=== PATIENT | male | born 1990 | race Caucasian/White ===

== ENCOUNTER 2020-07-12 16:28 | Outpatient (NON) | payer BC, SELFPAY | END 2020-07-12 16:29 | LOC: ANHLAB 16:30 | PROVIDERS: PCP Family Medicine; Visit Provider Nurse Practitioner | DX: L02.91 Cutaneous abscess, unspecified (principal) | CPT/HCPCS: 87070; 87075; 87076; 87205 ==

== ENCOUNTER → 2020-09-21 14:55 | Outpatient (REF) | payer BC, SELFPAY | LOC: ANHLAB 14:55 | PROVIDERS: PCP Family Medicine; Visit Provider Nurse Practitioner | DX: R22.9 Localized swelling, mass and lump, unspecified (principal) | CPT/HCPCS: 88304; 88305 ==

== ENCOUNTER 2023-05-12 14:13 | Outpatient (CLI) | payer BC, SELFPAY ==
[2023-05-12 14:37] LABS: Basophils Percent Auto 0.3 % (0.2-1.2); Eosinophils Absolute Auto 0.2 K/mm3 (0-0.3); Eosinophils Percent Auto 3.6 % (0-4.4); Hemoglobin 14.7 g/dL (14.0-18.0); Immature Granulocyte Absolute 0.03 K/mm3 (0.00-0.031); Immature Granulocyte Percent A 0.5 % (0-0.5); Lymphocytes Absolute Auto 1.77 K/mm3 (0.9-3.2); Lymphocytes Percent Auto 30.7 % (18.3-44.2); Mean Corpuscular HGB Conc 34.2 g/dl (32-36); Mean Corpuscular Hemoglobin 30.9 pg (26-34); Mean Corpuscular Volume 90.5 fl (80-100); Mean Platelet Volume 10.6 fl (7.4-10.4); Monocytes Absolute Auto 0.5 K/mm3 (0.1-0.6); Monocytes Percent Auto 8.1 % (2.6-8.5); Neutrophils Absolute Auto 3.3 K/mm3 (1.3-6.7); Neutrophils Percent Auto 56.8 % (45.5-73.1); Platelet Count Result 238 k/mm3 (150-375); Red Blood Count 4.75 M/mm3 (4.6-6.20); Red Cell Distribution Width 11.5 % (11.5-14.5); White Blood Count 5.8 K/mm3 (4.5-10.0)
[2023-05-12 20:24] LABS: Alanine Aminotransferase 17 U/L (6-50); Albumin Level 4.6 g/dL (3.5-5.1); Alkaline Phosphatase 57 U/L (38-126); Anion Gap 9 mmol/L (8-16); Aspartate Amino Transferase 34 U/L (17-59); Bilirubin,Total 0.5 mg/dL (0.2-1.3); Blood Urea Nitrogen 18 mg/dL (9-20); Calcium 9.5 mg/dL (8.4-10.2); Carbon Dioxide 31 mmol/L (22-30); Chloride 100 mmol/L (98-107); Estimated Glomerular Filt Rate > 60; Glucose 85 mg/dL (65-110); Sodium 140 mmol/L (137-145)
[2023-05-15 16:37] LABS: EBV Nuclear Ab Interpretation Past; EBV Virus Capsid Ag IgM Ab <36.00 U/mL (<36.00)
== END 2023-05-12 14:14 | disposition home or self-care (01) ==
LOC: ANHLAB 14:25
PROVIDERS: PCP Internal Medicine; Visit Provider Internal Medicine Hematology & Oncology
DX: R16.1 Splenomegaly, not elsewhere classified (principal)
CPT/HCPCS: 36415; 80053; 85025; 86664; 86665

== ENCOUNTER 2023-05-15 06:47 | Outpatient (CLI) | payer BC, SELFPAY ==
--- NOTE | ~2023-05-15 | CT_ITS ---
CT of the Abdomen and Pelvis: Indication: Splenomegaly Technique: 2.5 mm axial scans were obtained through the abdomen and pelvis following intravenous adm inistration of 100 cc of Omnipaque 350. Dose reduction technique was used on this scan by utilizing a utomated exposure control and iterative reconstruction technique. The dose-length product (DLP) was 2 44.00 mGy-cm. Findings: Scans through the lung bases are unremarkable. The liver, spleen, pancreas, gallbladder, adrenals and kidneys are within normal limits. No evidence of aortic aneurysm. No lymphadenopathy. No bowel obstruction or bowel wall thickening. There is no evidence to suggest acute appendicitis. Images through the pelvis were performed. Urinary bladder unremarkable. No pelvic mass seen. No ascit es. Impression: No significant abnormalities seen. Spleen appears to be within normal size limits. Reviewed, dictated and finalized at [facility]. [employer] NURSE NAVIGATOR Impression: No significant abnormalities seen. Spleen appears to be within normal size rik vidal.
== END 2023-05-15 06:48 | disposition home or self-care (01) ==
PROVIDERS: PCP Internal Medicine; Visit Provider Internal Medicine Hematology & Oncology
DX: R16.1 Splenomegaly, not elsewhere classified (principal)
CPT/HCPCS: 74177; Q9967

== ENCOUNTER 2023-05-16 13:59 | Outpatient (CLI) | payer BC, SELFPAY ==
[2023-05-20 03:45] LABS: Angiotensin Converting Enzyme 29 U/L (9-67)
== END 2023-05-16 14:00 | disposition home or self-care (01) ==
LOC: ANHLAB 14:01
PROVIDERS: PCP Internal Medicine; Visit Provider Internal Medicine Hematology & Oncology
DX: R16.1 Splenomegaly, not elsewhere classified (principal)
CPT/HCPCS: 36415; 82164; 88184

== ENCOUNTER 2023-08-19 14:27 | Outpatient (CLI) | payer BC, SELFPAY ==
[2023-08-19 14:52] LABS: Basophils Percent Auto 0.4 % (0.2-1.2); Eosinophils Absolute Auto 0.2 K/mm3 (0-0.3); Eosinophils Percent Auto 4.8 % (0-4.4); Hematocrit 41.8 % (42.0-52.0); Hemoglobin 14.5 g/dL (14.0-18.0); Immature Granulocyte Absolute 0.02 K/mm3 (0.00-0.031); Immature Granulocyte Percent A 0.4 % (0-0.5); Lymphocytes Absolute Auto 1.17 K/mm3 (0.9-3.2); Lymphocytes Percent Auto 25.5 % (18.3-44.2); Mean Corpuscular HGB Conc 34.7 g/dl (32-36); Mean Corpuscular Volume 89.3 fl (80-100); Mean Platelet Volume 10.3 fl (7.4-10.4); Monocytes Absolute Auto 0.6 K/mm3 (0.1-0.6); Monocytes Percent Auto 13.1 % (2.6-8.5); Neutrophils Absolute Auto 2.6 K/mm3 (1.3-6.7); Neutrophils Percent Auto 55.8 % (45.5-73.1); Platelet Count Result 209 k/mm3 (150-375); Red Blood Count 4.68 M/mm3 (4.6-6.20); Red Cell Distribution Width 11.9 % (11.5-14.5); White Blood Count 4.6 K/mm3 (4.5-10.0)
[2023-08-19 17:54] LABS: Folic Acid 11.8 ng/mL (2.76->20)
[2023-08-21 22:52] LABS: Methylmalonic Acid 107 nmol/L (87-318)
[2023-08-22 17:02] LABS: Intrinsic Factor Blocking Ab Negative (Negative)
== END 2023-08-19 14:28 | disposition home or self-care (01) ==
LOC: ANHLAB 14:30
PROVIDERS: PCP Internal Medicine; Visit Provider Internal Medicine Hematology & Oncology
DX: R16.1 Splenomegaly, not elsewhere classified (principal)
CPT/HCPCS: 36415; 82607; 82746; 83921; 85025; 86340; 86364

== ENCOUNTER 2023-11-19 14:23 | Outpatient (CLI) | payer BC, SELFPAY ==
[2023-11-19 14:35] LABS: Basophils Percent Auto 0.3 % (0.2-1.2); Eosinophils Absolute Auto 0.1 K/mm3 (0-0.3); Hematocrit 42.5 % (42.0-52.0); Hemoglobin 14.1 g/dL (14.0-18.0); Immature Granulocyte Absolute 0.02 K/mm3 (0.00-0.031); Immature Granulocyte Percent A 0.3 % (0-0.5); Lymphocytes Absolute Auto 1.63 K/mm3 (0.9-3.2); Lymphocytes Percent Auto 27.2 % (18.3-44.2); Mean Corpuscular HGB Conc 33.2 g/dl (32-36); Mean Corpuscular Hemoglobin 30.4 pg (26-34); Mean Corpuscular Volume 91.6 fl (80-100); Mean Platelet Volume 11.4 fl (7.4-10.4); Monocytes Absolute Auto 0.4 K/mm3 (0.1-0.6); Monocytes Percent Auto 6.8 % (2.6-8.5); Neutrophils Absolute Auto 3.8 K/mm3 (1.3-6.7); Neutrophils Percent Auto 63.4 % (45.5-73.1); Platelet Count Result 220 k/mm3 (150-375); Red Blood Count 4.64 M/mm3 (4.6-6.20); Red Cell Distribution Width 12.1 % (11.5-14.5)
[2023-11-19 19:26] LABS: Folic Acid 12.8 ng/mL (2.76->20)
== END 2023-11-19 14:24 | disposition home or self-care (01) ==
LOC: ANHLAB 14:25
PROVIDERS: PCP Internal Medicine; Visit Provider Internal Medicine Hematology & Oncology
DX: E53.8 Deficiency of other specified B group vitamins (principal)
CPT/HCPCS: 36415; 82607; 82746; 85025

== ENCOUNTER 2024-08-31 09:44 | Outpatient (CLI) | payer BC, SELFPAY ==
[2024-08-31 09:58] LABS: Basophils Percent Auto 0.4 % (0.2-1.2); Eosinophils Absolute Auto 0.2 K/mm3 (0-0.3); Eosinophils Percent Auto 2.9 % (0-4.4); Hematocrit 42.5 % (42.0-52.0); Hemoglobin 14.8 g/dL (14.0-18.0); Immature Granulocyte Absolute 0.03 K/mm3 (0.00-0.031); Immature Granulocyte Percent A 0.6 % (0-0.5); Lymphocytes Absolute Auto 1.87 K/mm3 (0.9-3.2); Mean Corpuscular HGB Conc 34.8 g/dl (32-36); Mean Corpuscular Hemoglobin 31.7 pg (26-34); Mean Platelet Volume 11.5 fl (7.4-10.4); Monocytes Absolute Auto 0.6 K/mm3 (0.1-0.6); Monocytes Percent Auto 10.6 % (2.6-8.5); Neutrophils Absolute Auto 2.6 K/mm3 (1.3-6.7); Neutrophils Percent Auto 49.5 % (45.5-73.1); Platelet Count Result 201 k/mm3 (150-375); Red Blood Count 4.67 M/mm3 (4.6-6.20); Red Cell Distribution Width 11.9 % (11.5-14.5); White Blood Count 5.2 K/mm3 (4.5-10.0)
[2024-08-31 10:33] LABS: Anion Gap 8 mmol/L (4-12); Blood Urea Nitrogen 18 mg/dL (9-20); Calcium 9.1 mg/dL (8.4-10.2); Carbon Dioxide 29 mmol/L (22-30); Chloride 100 mmol/L (98-107); Estimated Glomerular Filt Rate > 60; Glucose 93 mg/dL (65-110); Potassium 3.9 mmol/L (3.4-5.0); Sodium 137 mmol/L (137-145)
--- OUTSIDE RECORDS SUMMARY | 2024-08-31 11:11 | XMS_ITS | Data Portability ---
Author Organization [place] [facility], Main Office Address [address] [place] [address] Care Team Providers Care Rehab Specialist Name Role Phone GRETA AMBROSIO Primary Care Provider GRETA AMBROSIO Referring Provider Assessment Encounter Date Assessment Date Assessment LastModified by Organization Details LastModified Time 02/04/2023 02/04/2023 Continue with th e H2 renato get an abdominal ultrasound and see me in 6 weeks [email or web address] Not available 02/04/2023 21:48:01 08/20/2023 08/20/2023 33-year-old male presents for evaluation of his left hip. He reports pain for past couple years, getting progressively worse. He denies any acute injury, but says he started training for altered marathons. He has a race of 50 miles coming up at the end of September and he has been ramping up his training. He regularly goes on 30 myocardial infarction runs, and went on multiple long runs this past week. His pain is located in the groin of the left hip. He also has pain when he is walking and doing everyday activities. 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 He has been taking anti-inflammatori es, but those gave him esophagitis, and also done a course of physical therapy that was prescribed by his primary care doctor. That has not helped. Review of systems per patient questionnaire Physical exam: He has no focal tenderness around the hip. No pain with log roll. Hip flexion to 120, positive FAD IR, negative F ABER. 5- out of 5 hip flexion and abduction strength, positive Stinchfield. X-rays of the hip were reviewed, demonstrating mild arthritic changes with joint space narrowing and subchondral sclerosis, small osteophyte at the periphery. he actually has this on both of his hips, but he reports the right side does not bother him. 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 We discussed that he should 1st try. If rest, either after the race or immediately depending on how he feels, combined with anti-inflammatori es. We will switch him over to Celebrex and hopefully that will affect his stomach less. We also advised him to try Voltaren. If he continues to run long distances, that would put higher impact on his hip and potentially cause further flare-ups. We can see him back after his race at the end of September, or sooner as needed. He inquired about possibly having a labral tear of the hip, Especially after doing his own research. We discussed that after a period of rest and anti-inflammatori es, if he continues to have symptoms, then we would consider getting an MRI arthrogram to evaluate the labrum. [email or web address] Not available 08/20/2023 22:04:33 02/16/2024 02/16/2024 02/10/2024: Glob 1.9L, TP 6.4 [email or web address] Not available 02/16/2024 15:29:52 Plan of Treatment Reminders Order Date Submit Date Provider Last Modified By Organization Details Last Modified Time Details Appointments Any 15 2024 02:00P Kwame lindsay MD Not available Not available Not available Lab vitamin D, 25-hydrox y, total, serum 2023 024 [email or web address] [facility] (Lab), [address] [place], [address], 08/17/2024 10:12:08 lipid panel, serum 2023 024 [email or web address] [facility] (Lab), [address] [place], [address], 08/17/2024 10:12:09 CBC w/ auto diff 2023 024 [email or web address] [facility] (Lab), [address] [place], [address], 08/17/2024 10:12:09 CMP, serum or plasma [address] (Lab), [address] [place], [address], 08/17/2024 10:12:09 TSH, serum or plasma [address] (Lab), [address] [place], [address], 08/17/2024 10:12:09 vitamin B12 + folate, serum or blood [address] (Lab), [address] [place], [address], 08/17/2024 10:12:09 lipid panel, serum 2023 024 [facility] (Lab), [address] [place], [address], 08/12/2023 10:26:30 CBC w/ auto diff 2023 024 [facility] (Lab), [address] [place], [address], 08/12/2023 10:39:08 CMP, serum or plasma 2023 024 [facility] (Lab), [address] [place], [address], 08/12/2023 10:26:46 TSH, serum or plasma 2023 024 [facility] (Lab), [address] [place], [address], 08/12/2023 11:01:13 vitamin D, 25-hydrox y, total, serum [address] (Lab), [address] [place], [address], 02/02/2024 10:06:07 vitamin B12 + folate, serum or blood 2023 024 [facility] (Lab), [address] [place], [address], 08/19/2023 19:00:00 CBC w/ auto diff 2022 023 [facility] (Lab), [address] [place], [address], 04/01/2023 13:14:31 lipid panel, serum 2022 023 [facility] (Lab), [address] [place], [address], 04/01/2023 13:22:58 CMP, serum or plasma 2022 023 [facility] (Lab), [address] [place], [address], 04/01/2023 13:23:14 TSH, serum or plasma 2022 023 [facility] (Lab), [address] [place], [address], 04/01/2023 14:10:56 vitamin D, 25-hydrox y, total, serum 2022 023 [email or web address] [facility] (Lab), [address] [place], [address], 04/10/2023 11:13:10 vitamin B12 + folate, serum or blood 2022 023 [email or web address] [facility] (Lab), [address] [place], [address], 04/10/2023 11:13:[address] referral 2023 024 [email or web address] [facility], [address] [place], [address], 08/16/2024 17:34:43 hematolog ist referral 2023 024 [email or web address] Dale Flores MD, [address], [place], [address], 03/16/2024 16:32:45 hematolog ist referral 2023 024 [email or web address] Dale Flores MD, [address], [place], [address], 08/25/2023 09:39:37 physical therapist referral [email or web address] [place] [address] [facility], [address] [place], [address], 09/22/2023 12:00:[address] referral 2023 024 [email or web address] [facility], [address] [place], [address], 01/26/2024 14:28:09 hematolog ist referral 2022 023 [email or web address] Dale Flores MD, [address], [place], [address], 06/26/2023 13:38:[address] referral 2022 023 [email or web address] [facility], [address] [place], [address], 12/24/2023 08:29:32 Procedures None recorded. Surgeries None recorded. Imaging XR, hip + pelvis, unilatera l, 2 or 3 view 2023 024 [email or web address] Not available 08/05/2023 15:07:57 US, abdomen 2022 023 [email or web address] Not available 06/04/2023 09:12:50 Medication Orders Celebrex 200 mg capsule 2023 024 [facility]acy #[id number], [address] [place], [address], 02/16/2024 14:57:22 cyanocoba prashanth (vit B-12) 1,000 mcg/mL injection solution 2023 024 [email or web address] [facility]/Pharmacy #[id number], [address] [place], [address], 08/20/2023 14:03:03 Patient TargetsNo targets recorded. Patient InstructionsNo instructions recorded. Reason for Referral Neurologist Referral for Casey zamora Referring Physician: Greta Ambrosio Internal Medicine, Encounter Date: 03/31/2023 Referring Physician: Greta Ambrosio Internal Medicine, Encounter Date: 03/31/2023 Neurologist Referral for Casey genaoe Referring Physician: Greta Ambrosio Internal Medicine, Encounter Date: 07/28/2023 Referring Physician: Greta Ambrosio Internal Medicine, Encounter Date: 07/28/2023 Physical Therapist Referral for Pain of left hip joint Referring Physician: Greta Ambrosio Internal Medicine, Encounter Date: 07/28/2023 Neurologist Referral for Casey zamora Referring Physician: Greta Ambrosio Internal Medicine, Encounter Date: 02/16/2024 Referring Physician: Greta Ambrosio Internal Medicine, Encounter Date: 02/16/2024 Results Created Date Observation Date Name Description Value Unit Range Abnormal Flag Note LastModifiedBy Organization Detail LastModifiedTime 04/01/2004/01/2023 CBC/C OMPLE TE BLD COUNT W/DIF F white blood cells 5.4 x10'3 /uL 4.2-10 .8 Not Available [facility] (Lab) [address] [place], [address], 04/01/2023 13:14:31 04/01/2004/01/2023 CBC/C OMPLE TE BLD COUNT W/DIF F red blood cells 4.83 x10'6 /uL 4.10-5 .80 Not Available [facility] (Lab) [address] [facility] [place], [address], 04/01/2023 13:14:31 04/01/2004/01/2023 CBC/C OMPLE TE BLD COUNT W/DIF F hemoglobin 15.2 g/dL 13.2-1 7.0 Not Available [facility] (Lab) [address] [place], [address], 04/01/2023 13:14:31 04/01/2004/01/2023 CBC/C OMPLE TE BLD COUNT W/DIF F hematocrit 45.4 % 39.3-5 0.0 Not Available [facility] (Lab) [address] [place], [address], 04/01/2023 13:14:31 04/01/2004/01/2023 CBC/C OMPLE TE BLD COUNT W/DIF F mean red cell volume 94.0 fL 80.0-9 7.0 Not Available [facility] (Lab) [address] [place], [address], 04/01/2023 13:14:31 04/01/2004/01/2023 CBC/C OMPLE TE BLD COUNT W/DIF F mean red cell hemoglobin 31.5 pg 27.0-3 3.0 Not Available [facility] (Lab) [address] [place], [address], 04/01/2023 13:14:31 04/01/20 23 04/01/2023 CBC/C OMPLE TE BLD COUNT W/DIF F mean RBC HGB concentratio n 33.5 g/dL 31.0-3 6.0 Not Available [facility] (Lab) [address] [place], [address], 04/01/2023 13:14:31 04/01/2004/01/2023 CBC/C OMPLE TE BLD COUNT W/DIF F red cell distribution width 11.9 % 11.8-1 5.5 Not Available [facility] (Lab) [address] [place], [address], 04/01/2023 13:14:31 04/01/2004/01/2023 CBC/C OMPLE TE BLD COUNT W/DIF F platelets 272 x10'3 /uL 150-40 0 Not Available [facility] (Lab) [address] [place], [address], 04/01/2023 13:14:31 04/01/2004/01/2023 CBC/C OMPLE TE BLD COUNT W/DIF F mean platelet volume 11.3 fL 9.0-12 .4 Not Available [facility] (Lab) [address] [place], [address], 04/01/2023 13:14:31 04/01/2004/01/2023 CBC/C OMPLE TE BLD COUNT W/DIF F neutrophils 52.8 % 39.0-7 2.0 Not Available [facility] (Lab) [address] [place], [address], 04/01/2023 13:14:31 04/01/2004/01/2023 CBC/C OMPLE TE BLD COUNT W/DIF F lymphocytes 33.3 % 16.0-4 7.0 Not Available [facility] (Lab) [address] [place], [address], 04/01/2023 13:14:31 04/01/2004/01/2023 CBC/C OMPLE TE BLD COUNT W/DIF F monocytes 8.4 % 5.0-12 .0 Not Available [facility] (Lab) [address] [place], [address], 04/01/2023 13:14:31 04/01/2004/01/2023 CBC/C OMPLE TE BLD COUNT W/DIF F eosinophils 4.5 % 1.0-7. 0 Not Available [facility] (Lab) [address] [place], [address], 04/01/2023 13:14:31 04/01/2004/01/2023 CBC/C OMPLE TE BLD COUNT W/DIF F basophils 0.6 % 0.0-2. 0 Not Available [facility] (Lab) [address] [place], [address], 04/01/2023 13:14:31 04/01/2004/01/2023 CBC/C OMPLE TE BLD COUNT W/DIF F immature granulocytes 0.4 % 0.00-0 .50 Not Available [facility] (Lab) [address] [place], [address], 04/01/2023 13:14:31 04/01/2004/01/2023 CBC/C OMPLE TE BLD COUNT W/DIF F neutrophils, absolute count 2.84 x10'3 /uL 1.5-8. 0 Not Available [facility] (Lab) [address] [place], [address], 04/01/2023 13:14:31 04/01/2004/01/2023 CBC/C OMPLE TE BLD COUNT W/DIF F lymphocytes, absolute count 1.79 x10'3 /uL 1.07-3 .43 Not Available [facility] (Lab) [address] [place], [address], 04/01/2023 13:14:31 04/01/2004/01/2023 CBC/C OMPLE TE BLD COUNT W/DIF F monocytes, absolute count 0.45 x10'3 /uL 0.29-0 .99 Not Available [facility] (Lab) [address] [place], [address], 04/01/2023 13:14:31 04/01/2004/01/2023 CBC/C OMPLE TE BLD COUNT W/DIF F eosinophils, absolute count 0.24 x10'3 /uL 0.02-0 .53 Not Available [facility] (Lab) [address] [place], [address], 04/01/2023 13:14:31 04/01/2004/01/2023 CBC/C OMPLE TE BLD COUNT W/DIF F basophils, absolute count 0.03 x10'3 /uL 0.01-0 .08 Not Available [facility] (Lab) [address] [place], [address], 04/01/2023 13:14:31 04/01/2004/01/2023 CBC/C OMPLE TE BLD COUNT W/DIF F immature granulocytes ,absolute 0.02 x10'3 /uL 0.00-0 .05 Not Available [facility] (Lab) [address] [place], [address], 04/01/2023 13:14:31 04/01/2004/01/2023 CBC/C OMPLE TE BLD COUNT W/DIF F nucleated red blood cells 0.0 % -0 Not Available [facility] (Lab) [address] [place], [address], 04/01/2023 13:14:31 04/01/2004/01/2023 CBC/C OMPLE TE BLD COUNT W/DIF F NRBC# 0.00 x10'3 /uL Not Available [facility] (Lab) [address] [place], [address], 04/01/2023 13:14:31 04/01/2004/01/2023 LIPID PANEL cholesterol 184 mg/dL 140-19 9 NIH INDU NSUS RECOM MENDA TION FOR LEONOR STERO L: ADULT CHILD LOW RISK: <200 <170 BORDE RLINE : <200- 239 ----- HIGH RISK: >240 >200 Not Available [facility] (Lab) [address] [place], [address], 04/01/2023 13:22:58 04/01/20 23 04/01/2023 LIPID PANEL triglyceride s 83 mg/dL 0-150 NIH INDU NSUS REPOR T RECOM MENDA TION FOR TRIGL YCERI WAQAR: ADULT CHILD LOW RISK: <150 ----- BODER LINE: 150-1 99 ----- HIGH RISK: >200 ----- Not Available [facility] (Lab) [address] [place], [address], 04/01/2023 13:22:58 04/01/20 23 04/01/2023 LIPID PANEL HDL cholesterol 48 mg/dL 40- Not Available [facility] (Lab) [address] [place], [address], 04/01/2023 13:22:58 04/01/20 23 04/01/2023 LIPID PANEL LDL cholesterol, calculated 119 mg/dL 0-130 NIH INDU NSUS REPOR T RECOM MENDA TIONS FOR LDL: ADULT CHILD LOW RISK <130 <110 (OPTI MAL LDL) <100 ----- BORDE RLINE : 130-1 59 ----- HIGH RISK: >160 >130 A TRIGL YCERI DE RESUL T >400 INVAL IDATE S THE CALCU LATIO N FOR LDL FRACT IONAT ION - THE LDL RESUL T WILL NOT BE REPOR RENÉE. Not Available [facility] (Lab) [address] [place], [address], 04/01/2023 13:22:58 04/01/20 23 04/01/2023 COMPR EHENS PATRICIA METAB OLIC PANEL sodium 137 mmol/ L 137-14 5 Not Available [facility] (Lab) [address] [place], [address], 04/01/2023 13:23:14 04/01/20 23 04/01/2023 COMPR EHENS PATRICIA METAB OLIC PANEL potassium 4.0 mmol/ L 3.5-5. 1 Not Available [facility] (Lab) [address] [place], [address], 04/01/2023 13:23:14 04/01/20 23 04/01/2023 COMPR EHENS PATRICIA METAB OLIC PANEL chloride 101 mmol/ L 98-107 Not Available [facility] (Lab) [address] [place], [address], 04/01/2023 13:23:14 04/01/20 23 04/01/2023 COMPR EHENS PATRICIA METAB OLIC PANEL carbon dioxide 32 mmol/ L 22-30 high Not Available [facility] (Lab) [address] [place], [address], 04/01/2023 13:23:14 04/01/20 23 04/01/2023 COMPR EHENS PATRICIA METAB OLIC PANEL anion gap 8.0 mmol/ L 14-22 low Not Available [facility] (Lab) [address] [place], [address], 04/01/2023 13:23:14 04/01/20 23 04/01/2023 COMPR EHENS PATRICIA METAB OLIC PANEL glucose 85 mg/dL 70-99 Not Available [facility] (Lab) [address] [place], [address], 04/01/2023 13:23:14 04/01/20 23 04/01/2023 COMPR EHENS PATRICIA METAB OLIC PANEL BUN 17 mg/dL 8-19 Not Available [facility] (Lab) [address] [place], [address], 04/01/2023 13:23:14 04/01/20 23 04/01/2023 COMPR EHENS PATRICIA METAB OLIC PANEL creatinine 0.73 mg/dL 0.66-1 .25 Not Available [facility] (Lab) [address] [place], [address], 04/01/2023 13:23:14 04/01/20 23 04/01/2023 COMPR EHENS PATRICIA METAB OLIC PANEL GFR >60 Refer ence Range : [place] ge GFR Healt hy Adult : >60 mL/mi n/1.7 3 m2 Chron ic Kidne y Disea se: 15-60 mL/mi n/1.7 3 m2 Kidne y Failu re: <15/m L/min /1.73 m2 www.n iddk. nih.g ov The MDRD study equat ion has not been valid ated in child jolanta <18 years of age; pregn ant women ; the elder ly >85 years of age; or in some racia l or ethni c subgr oups, such as Hisky nics. Outsi de the valid ated mikael eters , estim ated GFR is less accur ate, requi ring clini zane judgm ent on a case- by-ca se basis . Clini zane inter preta tion for other races and ages must be made by the clini tony. The MDRD study equat ion has not been valid ated for the evalu ation of serum creat inine relat ed to nutri chris l statu s or medic ation usage . For perso ns <18 years of age, a pedia tric GFR calcu lator is avail able on the [facility] websi te: https ://ww w.kid sergey.o rg/pr ofess ional s/kdo qi/gf r_cal culat or Not Available [facility] (Lab) [address] [place], [address], 04/01/2023 13:23:14 04/01/2004/01/2023 COMPR EHENS PATRICIA METAB OLIC PANEL alkaline phosphatase 53 U/L 38-126 Not Available [facility] (Lab) [address] [place], [address], 04/01/2023 13:23:14 04/01/2004/01/2023 COMPR EHENS PATRICIA METAB OLIC PANEL alanine aminotransfe rase 23 U/L 0-50 Not Available [facility] (Lab) [address] [place], [address], 04/01/2023 13:23:14 04/01/2004/01/2023 COMPR EHENS PATRICIA METAB OLIC PANEL aspartate aminotransfe rase 41 U/L 15-46 Not Available [facility] (Lab) [address] [place], [address], 04/01/2023 13:23:14 04/01/2004/01/2023 COMPR EHENS PATRICIA METAB OLIC PANEL bilirubin, total 0.80 mg/dL 0.20-1 .30 Not Available [facility] (Lab) [address] [place], [address], 04/01/2023 13:23:14 04/01/2004/01/2023 COMPR EHENS PATRICIA METAB OLIC PANEL calcium 9.5 mg/dL 8.4-10 .2 Not Available [facility] (Lab) [address] [place], [address], 04/01/2023 13:23:14 04/01/2004/01/2023 COMPR EHENS PATRICIA METAB OLIC PANEL total protein 6.8 g/dL 6.3-8. 2 Not Available [facility] (Lab) [address] [place], [address], 04/01/2023 13:23:14 04/01/2004/01/2023 COMPR EHENS PATRICIA METAB OLIC PANEL albumin 4.5 g/dL 3.4-5. 0 Not Available [facility] (Lab) [address] [place], [address], 04/01/2023 13:23:14 04/01/2004/01/2023 COMPR EHENS PATRICIA METAB OLIC PANEL globulin 2.3 g/dL 2.6-4. 2 low Not Available [facility] (Lab) [address] [place], [address], 04/01/2023 13:23:14 04/01/2004/01/2023 COMPR EHENS PATRICIA METAB OLIC PANEL A/G ratio 2.0 ratio 1.0-2. 0 Not Available [facility] (Lab) [address] [place], [address], 04/01/2023 13:23:14 04/01/2004/01/2023 VITAM IN D 25-HY DROXY vd25oh 50.8 NG/mL 30-100 Vitam in D Statu s: Defic ient: <20 ng/mL Insuf ficie nt: 20-29 ng/mL Suffi cient : 30-10 0 ng/mL Not Available [facility] (Lab) [address] [place], [address], 04/01/2023 14:09:47 04/01/2004/01/2023 TSH W/REF ALESIA FT4 TSH with reflex free T4 1.230 uIU/m L 0.465- 4.680 Not Available [facility] (Lab) [address] [place], [address], 04/01/2023 14:10:56 04/01/2004/01/2023 VITAM IN B12 (ROSSANA PRASHANTH ) vb12 203 pg/mL 239-93 1 low Not Available [facility] (Lab) [address] [place], [address], 04/01/2023 14:50:06 04/01/2004/01/2023 FOLAT E, SERUM /PLAS MA folate 9.58 NG/mL 2.76-2 0.0 Not Available [facility] (Lab) [address] [place], [address], 04/01/2023 14:50:11 08/12/1908/12/2023 LIPID PANEL cholesterol 169 mg/dL 140-19 9 NIH INDU NSUS RECOM MENDA TION FOR LEONOR STERO L: ADULT CHILD LOW RISK: <200 <170 BORDE RLINE : <200- 239 ----- HIGH RISK: >240 >200 Not Available [facility] (Lab) [address] [place], [address], 08/12/2023 10:26:30 08/12/1908/12/2023 LIPID PANEL triglyceride s 85 mg/dL 0-150 NIH INDU NSUS REPOR T RECOM MENDA TION FOR TRIGL YCERI WAQAR: ADULT CHILD LOW RISK: <150 ----- BODER LINE: 150-1 99 ----- HIGH RISK: >200 ----- Not Available [facility] (Lab) [address] [place], [address], 08/12/2023 10:26:30 08/12/1908/12/2023 LIPID PANEL HDL cholesterol 50 mg/dL 40- Not Available [facility] (Lab) [address] [place], [address], 08/12/2023 10:26:30 08/12/1908/12/2023 LIPID PANEL LDL cholesterol, calculated 102 mg/dL 0-130 NIH INDU NSUS REPOR T RECOM MENDA TIONS FOR LDL: ADULT CHILD LOW RISK <130 <110 (OPTI MAL LDL) <100 ----- BORDE RLINE : 130-1 59 ----- HIGH RISK: >160 >130 A TRIGL YCERI DE RESUL T >400 INVAL IDATE S THE CALCU LATIO N FOR LDL FRACT IONAT ION - THE LDL RESUL T WILL NOT BE REPOR RENÉE. Not Available [facility] (Lab) [address] [place], [address], 08/12/2023 10:26:30 08/12/19 24 08/12/2023 COMPR EHENS PATRICIA METAB OLIC PANEL sodium 141 mmol/ L 137-14 5 Not Available [facility] (Lab) [address] [place], [address], 08/12/2023 10:26:46 08/12/19 24 08/12/2023 COMPR EHENS PATRICIA METAB OLIC PANEL potassium 4.2 mmol/ L 3.5-5. 1 Not Available [facility] (Lab) [address] [place], [address], 08/12/2023 10:26:46 08/12/19 24 08/12/2023 COMPR EHENS PATRICIA METAB OLIC PANEL chloride 101 mmol/ L 98-107 Not Available [facility] (Lab) [address] [place], [address], 08/12/2023 10:26:46 08/12/19 24 08/12/2023 COMPR EHENS PATRICIA METAB OLIC PANEL carbon dioxide 33 mmol/ L 22-30 high Not Available [facility] (Lab) [address] [place], [address], 08/12/2023 10:26:46 08/12/19 24 08/12/2023 COMPR EHENS PATRICIA METAB OLIC PANEL anion gap 11.2 mmol/ L 14-22 low Not Available [facility] (Lab) [address] [place], [address], 08/12/2023 10:26:46 08/12/19 24 08/12/2023 COMPR EHENS PATRICIA METAB OLIC PANEL glucose 97 mg/dL 70-99 Not Available [facility] (Lab) [address] [place], [address], 08/12/2023 10:26:46 08/12/19 24 08/12/2023 COMPR EHENS PATRICIA METAB OLIC PANEL BUN 14 mg/dL 8-19 Not Available [facility] (Lab) [address] [place], [address], 08/12/2023 10:26:46 08/12/19 24 08/12/2023 COMPR EHENS PATRICIA METAB OLIC PANEL creatinine 0.62 mg/dL 0.66-1 .25 low Not Available [facility] (Lab) [address] [place], [address], 08/12/2023 10:26:46 08/12/19 24 08/12/2023 COMPR EHENS PATRICIA METAB OLIC PANEL GFR >60 Refer ence Range : [place] ge GFR Healt hy Adult : >60 mL/mi n/1.7 3 m2 Chron ic Kidne y Disea se: 15-60 mL/mi n/1.7 3 m2 Kidne y Failu re: <15/m L/min /1.73 m2 www.n iddk. nih.g ov The MDRD study equat ion has not been valid ated in child jolanta <18 years of age; pregn ant women ; the elder ly >85 years of age; or in some racia l or ethni c subgr oups, such as Hisky nics. Outsi de the valid ated mikael eters , estim ated GFR is less accur ate, requi ring clini zane judgm ent on a case- by-ca se basis . Clini zane inter preta tion for other races and ages must be made by the clini tony. The MDRD study equat ion has not been valid ated for the evalu ation of serum creat inine relat ed to nutri chris l statu s or medic ation usage . For perso ns <18 years of age, a pedia tric GFR calcu lator is avail able on the [facility] websi te: https ://marisabel rincon.mirella javier/pr elviess ional s/kdo qi/gf r_cal culat or Not Available [facility] (Lab) [address] [place], [address], 08/12/2023 10:26:46 08/12/19 24 08/12/2023 COMPR EHENS PATRICIA METAB OLIC PANEL alkaline phosphatase 62 U/L 38-126 Not Available [facility] (Lab) [address] [place], [address], 08/12/2023 10:26:46 08/12/19 24 08/12/2023 COMPR EHENS PATRICIA METAB OLIC PANEL alanine aminotransfe rase 21 U/L 0-50 Not Available [facility] (Lab) [address] [place], [address], 08/12/2023 10:26:46 08/12/19 24 08/12/2023 COMPR EHENS PATRICIA METAB OLIC PANEL aspartate aminotransfe rase 44 U/L 15-46 Not Available [facility] (Lab) [address] [place], [address], 08/12/2023 10:26:46 08/12/19 24 08/12/2023 COMPR EHENS PATRICIA METAB OLIC PANEL bilirubin, total 0.70 mg/dL 0.20-1 .30 Not Available [facility] (Lab) [address] [place], [address], 08/12/2023 10:26:46 08/12/19 24 08/12/2023 COMPR EHENS PATRICIA METAB OLIC PANEL calcium 9.9 mg/dL 8.4-10 .2 Not Available [facility] (Lab) [address] [place], [address], 08/12/2023 10:26:46 08/12/19 24 08/12/2023 COMPR EHENS PATRICIA METAB OLIC PANEL total protein 7.1 g/dL 6.3-8. 2 Not Available [facility] (Lab) [address] [place], [address], 08/12/2023 10:26:46 08/12/19 24 08/12/2023 COMPR EHENS PATRICIA METAB OLIC PANEL albumin 4.6 g/dL 3.4-5. 0 Not Available [facility] (Lab) [address] [place], [address], 08/12/2023 10:26:46 08/12/19 24 08/12/2023 COMPR EHENS PATRICIA METAB OLIC PANEL globulin 2.5 g/dL 2.6-4. 2 low Not Available [facility] (Lab) [address] [place], [address], 08/12/2023 10:26:46 08/12/19 24 08/12/2023 COMPR EHENS PATRICIA METAB OLIC PANEL A/G ratio 1.8 ratio 1.0-2. 0 Not Available [facility] (Lab) [address] [place], [address], 08/12/2023 10:26:46 08/12/19 24 08/12/2023 CBC/C OMPLE TE BLD COUNT W/DIF F white blood cells 5.0 x10'3 /uL 4.2-10 .8 Not Available [facility] (Lab) [address] [place], [address], 08/12/2023 10:39:08 08/12/19 24 08/12/2023 CBC/C OMPLE TE BLD COUNT W/DIF F red blood cells 4.95 x10'6 /uL 4.10-5 .80 Not Available [facility] (Lab) [address] [place], [address], 08/12/2023 10:39:08 08/12/19 24 08/12/2023 CBC/C OMPLE TE BLD COUNT W/DIF F hemoglobin 15.2 g/dL 13.2-1 7.0 Not Available [facility] (Lab) [address] [place], [address], 08/12/2023 10:39:08 08/12/19 24 08/12/2023 CBC/C OMPLE TE BLD COUNT W/DIF F hematocrit 45.6 % 39.3-5 0.0 Not Available [facility] (Lab) [address] [place], [address], 08/12/2023 10:39:08 08/12/19 24 08/12/2023 CBC/C OMPLE TE BLD COUNT W/DIF F mean red cell volume 92.1 fL 80.0-9 7.0 Not Available [facility] (Lab) [address] [place], [address], 08/12/2023 10:39:08 08/12/19 24 08/12/2023 CBC/C OMPLE TE BLD COUNT W/DIF F mean red cell hemoglobin 30.7 pg 27.0-3 3.0 Not Available [facility] (Lab) [address] [place], [address], 08/12/2023 10:39:08 08/12/19 24 08/12/2023 CBC/C OMPLE TE BLD COUNT W/DIF F mean RBC HGB concentratio n 33.3 g/dL 31.0-3 6.0 Not Available [facility] (Lab) [address] [place], [address], 08/12/2023 10:39:08 08/12/19 24 08/12/2023 CBC/C OMPLE TE BLD COUNT W/DIF F red cell distribution width 11.9 % 11.8-1 5.5 Not Available [facility] (Lab) [address] [place], [address], 08/12/2023 10:39:08 08/12/19 24 08/12/2023 CBC/C OMPLE TE BLD COUNT W/DIF F platelets 239 x10'3 /uL 150-40 0 Not Available [facility] (Lab) [address] [place], [address], 08/12/2023 10:39:08 08/12/19 24 08/12/2023 CBC/C OMPLE TE BLD COUNT W/DIF F mean platelet volume 11.3 fL 9.0-12 .4 Not Available [facility] (Lab) [address] [place], [address], 08/12/2023 10:39:08 08/12/19 24 08/12/2023 CBC/C OMPLE TE BLD COUNT W/DIF F neutrophils 51.9 % 39.0-7 2.0 Not Available [facility] (Lab) [address] [place], [address], 08/12/2023 10:39:08 08/12/19 24 08/12/2023 CBC/C OMPLE TE BLD COUNT W/DIF F lymphocytes 33.9 % 16.0-4 7.0 Not Available [facility] (Lab) [address] [place], [address], 08/12/2023 10:39:08 08/12/19 24 08/12/2023 CBC/C OMPLE TE BLD COUNT W/DIF F monocytes 7.9 % 5.0-12 .0 Not Available [facility] (Lab) [address] [place], [address], 08/12/2023 10:39:08 08/12/19 24 08/12/2023 CBC/C OMPLE TE BLD COUNT W/DIF F eosinophils 5.5 % 1.0-7. 0 Not Available [facility] (Lab) [address] [place], [address], 08/12/2023 10:39:08 08/12/19 24 08/12/2023 CBC/C OMPLE TE BLD COUNT W/DIF F basophils 0.6 % 0.0-2. 0 Not Available [facility] (Lab) [address] [place], [address], 08/12/2023 10:39:08 08/12/19 24 08/12/2023 CBC/C OMPLE TE BLD COUNT W/DIF F immature granulocytes 0.2 % 0.00-0 .50 Not Available [facility] (Lab) [address] [place], [address], 08/12/2023 10:39:08 08/12/19 24 08/12/2023 CBC/C OMPLE TE BLD COUNT W/DIF F neutrophils, absolute count 2.57 x10'3 /uL 1.5-8. 0 Not Available [facility] (Lab) [address] [place], [address], 08/12/2023 10:39:08 08/12/19 24 08/12/2023 CBC/C OMPLE TE BLD COUNT W/DIF F lymphocytes, absolute count 1.68 x10'3 /uL 1.07-3 .43 Not Available [facility] (Lab) [address] [place], [address], 08/12/2023 10:39:08 08/12/19 24 08/12/2023 CBC/C OMPLE TE BLD COUNT W/DIF F monocytes, absolute count 0.39 x10'3 /uL 0.29-0 .99 Not Available [facility] (Lab) [address] [place], [address], 08/12/2023 10:39:08 08/12/19 24 08/12/2023 CBC/C OMPLE TE BLD COUNT W/DIF F eosinophils, absolute count 0.27 x10'3 /uL 0.02-0 .53 Not Available [facility] (Lab) [address] [place], [address], 08/12/2023 10:39:08 08/12/19 24 08/12/2023 CBC/C OMPLE TE BLD COUNT W/DIF F basophils, absolute count 0.03 x10'3 /uL 0.01-0 .08 Not Available [facility] (Lab) [address] [place], [address], 08/12/2023 10:39:08 08/12/19 24 08/12/2023 CBC/C OMPLE TE BLD COUNT W/DIF F immature granulocytes ,absolute 0.01 x10'3 /uL 0.00-0 .05 Not Available [facility] (Lab) [address] [place], [address], 08/12/2023 10:39:08 08/12/19 24 08/12/2023 CBC/C OMPLE TE BLD COUNT W/DIF F nucleated red blood cells 0.0 % -0 Not Available [facility] (Lab) [address] [place], [address], 08/12/2023 10:39:08 08/12/19 24 08/12/2023 CBC/C OMPLE TE BLD COUNT W/DIF F NRBC# 0.00 x10'3 /uL Not Available [facility] (Lab) [address] [place], [address], 08/12/2023 10:39:08 08/12/19 24 08/12/2023 VITAM IN D 25-HY DROXY [id number] 66.8 NG/mL 30-100 Vitam in D Statu s: Defic ient: <20 ng/mL Insuf ficie nt: 20-29 ng/mL Suffi cient : 30-10 0 ng/mL Not Available [facility] (Lab) [address] [place], [address], 08/12/2023 11:00:26 08/12/19 24 08/12/2023 TSH W/REF ALESIA FT4 TSH with reflex free T4 1.190 uIU/m L 0.465- 4.680 Not Available [facility] (Lab) [address] [place], [address], 08/12/2023 11:01:13 08/12/19 24 08/12/2023 VITAM IN B12 (ROSSANA PRASHANTH ) vb12 390 pg/mL 239-93 1 Not Available [facility] (Lab) [address] [place], [address], 08/12/2023 11:45:41 08/12/19 24 08/12/2023 FOLAT E, SERUM /PLAS MA folate 12.5 NG/mL 2.76-2 0.0 Not Available [facility] (Lab) [address] [place], [address], 08/12/2023 11:45:46 02/10/20 24 02/10/2024 CBC/C OMPLE TE BLD COUNT W/DIF F white blood cells 5.1 x10'3 /uL 4.2-10 .8 Not Available [facility] (Lab) [address] [place], [address], 02/10/2024 18:20:55 02/10/20 24 02/10/2024 CBC/C OMPLE TE BLD COUNT W/DIF F red blood cells 4.39 x10'6 /uL 4.10-5 .80 Not Available [facility] (Lab) [address] [place], [address], 02/10/2024 18:20:55 02/10/20 24 02/10/2024 CBC/C OMPLE TE BLD COUNT W/DIF F hemoglobin 14.1 g/dL 13.2-1 7.0 Not Available [facility] (Lab) [address] [place], [address], 02/10/2024 18:20:55 02/10/20 24 02/10/2024 CBC/C OMPLE TE BLD COUNT W/DIF F hematocrit 41.1 % 39.3-5 0.0 Not Available [facility] (Lab) [address] [place], [address], 02/10/2024 18:20:55 02/10/20 24 02/10/2024 CBC/C OMPLE TE BLD COUNT W/DIF F mean red cell volume 93.6 fL 80.0-9 7.0 Not Available [facility] (Lab) [address] [place], [address], 02/10/2024 18:20:55 02/10/20 24 02/10/2024 CBC/C OMPLE TE BLD COUNT W/DIF F mean red cell hemoglobin 32.1 pg 27.0-3 3.0 Not Available [facility] (Lab) [address] [place], [address], 02/10/2024 18:20:55 02/10/20 24 02/10/2024 CBC/C OMPLE TE BLD COUNT W/DIF F mean RBC HGB concentratio n 34.3 g/dL 31.0-3 6.0 Not Available [facility] (Lab) [address] [place], [address], 02/10/2024 18:20:55 02/10/20 24 02/10/2024 CBC/C OMPLE TE BLD COUNT W/DIF F red cell distribution width 11.8 % 11.8-1 5.5 Not Available [facility] (Lab) [address] [place], [address], 02/10/2024 18:20:55 02/10/20 24 02/10/2024 CBC/C OMPLE TE BLD COUNT W/DIF F platelets 217 x10'3 /uL 150-40 0 Not Available [facility] (Lab) [address] [place], [address], 02/10/2024 18:20:55 02/10/20 24 02/10/2024 CBC/C OMPLE TE BLD COUNT W/DIF F mean platelet volume 11.8 fL 9.0-12 .4 Not Available [facility] (Lab) [address] [place], [address], 02/10/2024 18:20:55 02/10/20 24 02/10/2024 CBC/C OMPLE TE BLD COUNT W/DIF F neutrophils 55.1 % 39.0-7 2.0 Not Available [facility] (Lab) [address] [place], [address], 02/10/2024 18:20:55 02/10/20 24 02/10/2024 CBC/C OMPLE TE BLD COUNT W/DIF F lymphocytes 33.2 % 16.0-4 7.0 Not Available [facility] (Lab) [address] [place], [address], 02/10/2024 18:20:55 02/10/20 24 02/10/2024 CBC/C OMPLE TE BLD COUNT W/DIF F monocytes 7.9 % 5.0-12 .0 Not Available [facility] (Lab) [address] [place], [address], 02/10/2024 18:20:55 02/10/20 24 02/10/2024 CBC/C OMPLE TE BLD COUNT W/DIF F eosinophils 3.0 % 1.0-7. 0 Not Available [facility] (Lab) [address] [place], [address], 02/10/2024 18:20:55 02/10/20 24 02/10/2024 CBC/C OMPLE TE BLD COUNT W/DIF F basophils 0.6 % 0.0-2. 0 Not Available [facility] (Lab) [address] [place], [address], 02/10/2024 18:20:55 02/10/20 24 02/10/2024 CBC/C OMPLE TE BLD COUNT W/DIF F immature granulocytes 0.2 % 0.00-0 .50 Not Available [facility] (Lab) [address] [place], [address], 02/10/2024 18:20:55 02/10/20 24 02/10/2024 CBC/C OMPLE TE BLD COUNT W/DIF F neutrophils, absolute count 2.79 x10'3 /uL 1.5-8. 0 Not Available [facility] (Lab) [address] [place], [address], 02/10/2024 18:20:55 02/10/20 24 02/10/2024 CBC/C OMPLE TE BLD COUNT W/DIF F lymphocytes, absolute count 1.68 x10'3 /uL 1.07-3 .43 Not Available [facility] (Lab) [address] [place], [address], 02/10/2024 18:20:55 02/10/20 24 02/10/2024 CBC/C OMPLE TE BLD COUNT W/DIF F monocytes, absolute count 0.40 x10'3 /uL 0.29-0 .99 Not Available [facility] (Lab) [address] [place], [address], 02/10/2024 18:20:55 02/10/20 24 02/10/2024 CBC/C OMPLE TE BLD COUNT W/DIF F eosinophils, absolute count 0.15 x10'3 /uL 0.02-0 .53 Not Available [facility] (Lab) [address] [place], [address], 02/10/2024 18:20:55 02/10/2002/10/2024 CBC/C OMPLE TE BLD COUNT W/DIF F basophils, absolute count 0.03 x10'3 /uL 0.01-0 .08 Not Available [facility] (Lab) [address] [place], [address], 02/10/2024 18:20:55 02/10/20 24 02/10/2024 CBC/C OMPLE TE BLD COUNT W/DIF F immature granulocytes ,absolute 0.01 x10'3 /uL 0.00-0 .05 Not Available [facility] (Lab) [address] [place], [address], 02/10/2024 18:20:55 02/10/20 24 02/10/2024 CBC/C OMPLE TE BLD COUNT W/DIF F nucleated red blood cells 0.0 % -0 Not Available [facility] (Lab) [address] [place], [address], 02/10/2024 18:20:55 02/10/20 24 02/10/2024 CBC/C OMPLE TE BLD COUNT W/DIF F NRBC# 0.00 x10'3 /uL Not Available [facility] (Lab) [address] [place], [address], 02/10/2024 18:20:55 02/10/20 24 02/10/2024 VITAM IN D 25-HY DROXY [id number] 65.1 NG/mL 30-100 Vitam in D Statu s: Defic ient: <20 ng/mL Insuf ficie nt: 20-29 ng/mL Suffi cient : 30-10 0 ng/mL Not Available [facility] (Lab) [address] [place], [address], 02/10/2024 18:48:31 02/10/20 24 02/10/2024 LIPID PANEL cholesterol 129 mg/dL 140-19 9 low NIH INDU NSUS RECOM MENDA TION FOR LEONOR STERO L: ADULT CHILD LOW RISK: <200 <170 BORDE RLINE : <200- 239 ----- HIGH RISK: >240 >200 Not Available [facility] (Lab) [address] [place], [address], 02/10/2024 18:41:46 02/10/2002/10/2024 LIPID PANEL triglyceride s 80 mg/dL 0-150 NIH INDU NSUS REPOR T RECOM MENDA TION FOR TRIGL YCERI WAQAR: ADULT CHILD LOW RISK: <150 ----- BODER LINE: 150-1 99 ----- HIGH RISK: >200 ----- Not Available [facility] (Lab) [address] [place], [address], 02/10/2024 18:41:46 02/10/2002/10/2024 LIPID PANEL HDL cholesterol 43 mg/dL 40- Not Available [facility] (Lab) [address] [place], [address], 02/10/2024 18:41:46 02/10/20 24 02/10/2024 LIPID PANEL LDL cholesterol, calculated 70 mg/dL 0-130 NIH INDU NSUS REPOR T RECOM MENDA TIONS FOR LDL: ADULT CHILD LOW RISK <130 <110 (OPTI MAL LDL) <100 ----- BORDE RLINE : 130-1 59 ----- HIGH RISK: >160 >130 A TRIGL YCERI DE RESUL T >400 INVAL IDATE S THE CALCU LATIO N FOR LDL FRACT IONAT ION - THE LDL RESUL T WILL NOT BE REPOR RENÉE. Not Available [facility] (Lab) [address] [place], [address], 02/10/2024 18:41:46 02/10/2002/10/2024 COMPR EHENS PATRICIA METAB OLIC PANEL sodium 138 mmol/ L 137-14 5 Not Available [facility] (Lab) [address] [place], [address], 02/10/2024 18:41:52 02/10/20 24 02/10/2024 COMPR EHENS PATRICIA METAB OLIC PANEL potassium 3.8 mmol/ L 3.5-5. 1 Not Available [facility] (Lab) [address] [place], [address], 02/10/2024 18:41:52 02/10/2002/10/2024 COMPR EHENS PATRICIA METAB OLIC PANEL chloride 104 mmol/ L 98-107 Not Available [facility] (Lab) [address] [place], [address], 02/10/2024 18:41:52 02/10/20 24 02/10/2024 COMPR EHENS PATRICIA METAB OLIC PANEL carbon dioxide 32 mmol/ L 22-30 high Not Available [facility] (Lab) [address] [place], [address], 02/10/2024 18:41:52 02/10/20 24 02/10/2024 COMPR EHENS PATRICIA METAB OLIC PANEL anion gap 5.8 mmol/ L 14-22 low Not Available [facility] (Lab) [address] [place], [address], 02/10/2024 18:41:52 02/10/20 24 02/10/2024 COMPR EHENS PATRICIA METAB OLIC PANEL glucose 96 mg/dL 70-99 Not Available [facility] (Lab) [address] [place], [address], 02/10/2024 18:41:52 02/10/20 24 02/10/2024 COMPR EHENS PATRICIA METAB OLIC PANEL BUN 13 mg/dL 8-19 Not Available [facility] (Lab) [address] [place], [address], 02/10/2024 18:41:52 02/10/20 24 02/10/2024 COMPR EHENS PATRICIA METAB OLIC PANEL creatinine 0.65 mg/dL 0.66-1 .25 low Not Available [facility] (Lab) [address] [place], [address], 02/10/2024 18:41:52 02/10/20 24 02/10/2024 COMPR EHENS PATRICIA METAB OLIC PANEL GFR >60 Refer ence Range : [place] ge GFR Healt hy Adult : >60 mL/mi n/1.7 3 m2 Chron ic Kidne y Disea se: 15-60 mL/mi n/1.7 3 m2 Kidne y Failu re: <15/m L/min /1.73 m2 www.n iddk. nih.g ov The MDRD study equat ion has not been valid ated in child jolanta <18 years of age; pregn ant women ; the elder ly >85 years of age; or in some racia l or ethni c subgr oups, such as Hispa nics. Outsi de the valid ated mikael eters , estim ated GFR is less accur ate, requi ring clini zane judgm ent on a case- by-ca se basis . Clini zane inter preta tion for other races and ages must be made by the clini tony. The MDRD study equat ion has not been valid ated for the evalu ation of serum creat inine relat ed to nutri chris l statu s or medic ation usage . For perso ns <18 years of age, a pedia tric GFR calcu lator is avail able on the [facility] websi te: https ://marisabel green.eryn rincon.o rg/pr ofess ional s/kdo qi/gf r_cal culat or Not Available [facility] (Lab) [address] [place], [address], 02/10/2024 18:41:52 02/10/20 24 02/10/2024 COMPR EHENS PATRICIA METAB OLIC PANEL alkaline phosphatase 62 U/L 38-126 Not Available [facility] (Lab) [address] [place], [address], 02/10/2024 18:41:52 02/10/20 24 02/10/2024 COMPR EHENS PATRICIA METAB OLIC PANEL alanine aminotransfe rase 19 U/L 0-50 Not Available [facility] (Lab) [address] [place], [address], 02/10/2024 18:41:52 02/10/20 24 02/10/2024 COMPR EHENS PATRICIA METAB OLIC PANEL aspartate aminotransfe rase 41 U/L 15-46 Not Available [facility] (Lab) [address] [place], [address], 02/10/2024 18:41:52 02/10/20 24 02/10/2024 COMPR EHENS PATRICIA METAB OLIC PANEL bilirubin, total 0.70 mg/dL 0.20-1 .30 Not Available [facility] (Lab) [address] [place], [address], 02/10/2024 18:41:52 02/10/20 24 02/10/2024 COMPR EHENS PATRICIA METAB OLIC PANEL calcium 9.5 mg/dL 8.4-10 .2 Not Available [facility] (Lab) [address] [place], [address], 02/10/2024 18:41:52 02/10/20 24 02/10/2024 COMPR EHENS PATRICIA METAB OLIC PANEL total protein 6.4 g/dL 6.3-8. 2 Not Available [facility] (Lab) [address] [place], [address], 02/10/2024 18:41:52 02/10/20 24 02/10/2024 COMPR EHENS PATRICIA METAB OLIC PANEL albumin 4.5 g/dL 3.4-5. 0 Not Available [facility] (Lab) [address] [place], [address], 02/10/2024 18:41:52 02/10/20 24 02/10/2024 COMPR EHENS PATRICIA METAB OLIC PANEL globulin 1.9 g/dL 2.6-4. 2 low Not Available [facility] (Lab) [address] [place], [address], 02/10/2024 18:41:52 02/10/20 24 02/10/2024 COMPR EHENS PATRICIA METAB OLIC PANEL A/G ratio 2.4 ratio 1.0-2. 0 high Not Available [facility] (Lab) [address] [place], [address], 02/10/2024 18:41:52 02/10/20 24 02/10/2024 T4 FREE free T4 1.00 NG/dL 0.78-2 .19 Not Available [facility] (Lab) [address] [place], [address], 02/10/2024 18:49:01 02/10/20 24 02/10/2024 VITAM IN B12 (ROSSANA PRASHANTH ) vb12 918 pg/mL 239-93 1 Not Available [facility] (Lab) [address] [place], [address], 02/10/2024 19:42:43 02/10/20 24 02/10/2024 FOLAT E, SERUM /PLAS MA folate 13.3 NG/mL 2.76-2 0.0 Not Available [facility] (Lab) [address] [place], [address], 02/10/2024 19:42:48 02/10/20 24 02/10/2024 TSH thyroid-stim ulating hormone 1.040 uIU/m L 0.465- 4.680 Not Available [facility] (Lab) [address] [place], [address], 02/10/2024 19:42:54 02/14/20 23 US, abdom en [facility] [address] [place] [address] Patien t Name: LILIYA BRYANT Access ion #: [id number] Sex: M : 1989 7 4 Dictat ed By: Valente Rene Attend ing Physic alberto: CORDELIA CAAL Orderi ng Physic alberto: CORDELIA CAAL Exam Date: 2022 08:02 AM Exam Name: US ABDOME N MULTIP LE ORGANS Admitt ing Diagno sis(es ): INDICA TION: Pain. TECHNI QUE: Multip le real-t shell sonogr aphic images of the abdome n were obtain ed. COMPAR NINA: Prior exam dated. FINDIN GS: The liver is homoge nous in echoge nicity . No intrah epatic biliar y ductal dilata tion is noted. No hepati c masses were seen. The gallbl adder wall measur es 2 mm and is normal in size. No gallst ones or sludge are seen. The common duct measur es 5 mm and is normal in size. No perich olecys tic fluid is noted. The right kidney measur es 10cm and is normal in size. The right renal echoge nicity , contou r and cortic al thickn ess are within normal limits . No hydron ephros is or large masses are seen. The left kidney measur es 11cm and is normal in size. The left renal echoge nicity , contou r, and cortic al thickn ess are within normal limits . No hydron ephros is or large masses are seen. The spleen measur es 13cm, enlarg ed. The echoge nicity is within normal limits . The pancre as is not well visual ized due to bowel gas. The aorta unrema rkable The ivc unrema rkable IMPRES TED: Page 1 [facility] [address] [place] [address] Patien t Name: RYLAND KESSLER LILIYA Access ion #: [id number] Sex: M : 1989 7 4 Dictat ed By: Valente Rene Attend ing Physic alberto: MALVIN RAY [facility] Physic alberto: CORDELIA CAAL Exam Date: 2022 08:02 AM Exam Name: US ABDOME N MULTIP LE ORGANS Admitt ing Diagno sis(es ): 1. Spleno megaly , otherw ise Normal exam of the abdome n. Electr onical ly Signed by: Valente Rene at 2022 10:12: 20 AM Page 2 [facility] (Imaging) [address] [place], [address], 06/04/2023 09:12:49 05/15/20 23 05/15/2023 CT, abdom en + pelvi s, w/ contr ast No observ ation record ed. [facility] [address], [place], [address], 01/16/2024 14:02:08 08/05/19 24 XR, hip, unila teral [facility] [address] [place] [address] [phone] Patien t Name: LILIYA BRYANT Access ion #: [id number] Sex: M : 1989 7 0 Dictat ed By: Sebastián Verde Attend ing Physic alberto: CÉSAR HAN Orderi Physic alberto: CÉSAR HAN Exam Date: 2023 13:41 PM Exam Name: XR HIP/PE LVIS LT 2-3V Admitt ing Diagno sis(es ): CLINIC AL INDICA TION: PAIN Clinic al Indica tion: PAIN Compar nina: None Left hip series . FINDIN GS: The AP and frog-l eg views of the left hip show normal alignm ent withou t fractu res or disloc ations . There are no radio- opaque foreig n bodies . The acetab ulum is narrow ed.. There is no radiog raphic eviden ce of femoro -aceta bular imping ement or acetab ular dyspla martha. The visual ized sacroi liac joint and symphy sis pubis are unrema rkable . If there is furthe r concer n, recomm end follow -up radiog raphs or MRI for comple te assess ment. IMPRES TED: No fractu re or disloc ation of the hip. Change s of left hip arthri tis Electr onical ly Signed by: Sebastián Verde at 2023 14:03: 39 PM Page 1 [email or web address] [facility] (Imaging) [address], [place], [address], 01/16/2024 14:02:09 08/05/19 24 08/05/2023 XR, hip + pelvi s, unila teral , 2 or 3 view No observ ation record ed. [email or web address] [facility] [address], [place], [address], 01/16/2024 14:02:09 Result Notes None recorded. Problems Name Problem SNOMED Code Status Onset Date Resolution Date Notes Provider Name and Address Organization Details Recorded Time Rectal pain 75376222 Active 2022 Not Available [facility] 3 05:14:28 Abdominal pain 15867714 Active 2022 Not Available [facility] 3 05:14:28 Spl[employer] ly 13162642 Active 2022 Missy Sommers RN null, [facility] [employer] [facility] 3 09:49:14 Migraine 90154080 Active 2022 Greta miller MD [address], [place], [address] , [facility] [employer] [facility] [employer] [facility] 3 16:24:48 Vitamin D deficiency 15425447 Active 2022 Greta miller MD [address], [address], [place], [address] , [facility] [employer] [facility] [employer] [facility] 3 16:25:31 Serum vitamin B12 below reference range 368829807 Active 2022 Greta miller MD [address], [address], [place], [address] , [facility] [employer] [facility] [employer] [facility] 3 16:25:40 Hyperlipid emia 81444109 Active 2022 Janice Velásquez null, [facility] [employer] [facility] 3 14:43:41 Cobalamin deficiency 378656392 Active 2022 Alexandra Siddiqui MA null, [facility] [employer] [facility] 3 15:34:36 Pain of left hip joint 2784564053853 00 Active 2023 Greta miller MD [address], [address], [place], [address] , [employer] 4 16:55:35 Rib pain 759422472 Active 2023 Greta miller MD [address] [facility] [address], [place], [address] , [employer] 4 18:32:25 Problem Notes None recorded. Procedures Surgical History Date Name Laterality Status Provider Name and Address Organization Details Recorded Time Cyst Removal completed Not Available [facility] 08/08/2022 01:48:12 Vasectomy completed Dai Simon [employer] 03/31/2023 16:20:06 Imaging Results Imaging Date Name Status LastModified by Organiz ation Details LastModified Time 02/13/2023 US, abdomen completed [facility] (Imaging) [address] [place], [address], 06/04/2023 09:12:49 05/15/2023 CT, abdomen + pelvis, w/ contrast completed [address], [address], 01/16/2024 14:02:08 08/05/2023 XR, hip, unilateral completed [address] (Imaging) [address] [place], [address], 01/16/2024 14:02:09 08/05/2023 XR, hip + pelvis, unilateral, 2 or 3 view completed [address] [place], [address], 01/16/2024 14:02:09 Procedure Notes None recorded. Medical Equipment None Reported. Allergies Allergen ID Allergen Name Allergen Category Reaction Reaction Severity Criticality Documentation Date Start Date Code Code System Note Provider Name and Address Organization Details Recorded Time 78900 Product containin g penicilli n (product) medicatio n Not available Not available Not available 08/08/2022 26028 8009 SNOMED Not Available [facility] 3 01:49:36 Medications Name Sig Start Date Stop Date Status Note LastModified by Organization Details LastModified Time celecoxib 200 mg capsule TAKE 1 CAPSULE BY MOUTH EVERY DAY 02/15 completed Not Available Not Available Not Available silver sulfadiaz ine 1 % topical cream 06/27 completed Not Available Not Available Not Available sulfameth oxazole 800 mg-trimet hoprim 160 mg tablet TAKE 1 TABLET BY MOUTH EVERY 12 HOURS FOR 7 DAYS-DRI NK PLENTY OF FLUIDS WHILE TAKING 02/15 completed Not Available Not Available Not Available hydrocort isone acetate 25 mg rectal supposito ry UNWRAP & INSERT 1 SUPPOSIT ORY RECTALLY TWICE A DAY FOR 14 DAYS active Not Available Not Available No t Available famotidin e 20 mg tablet TAKE 1 TABLET BY MOUTH EVERY DAY 02/04 completed Not Available Not Available Not Available cyanocoba prashanth (vit B-12) 1,000 mcg/mL injection solution take one shot once a month for 3 months 08/19 completed [facility]: 51679-63 44-00 Not Available Not Available Not Available Crestor 40 mg tablet Take 1 tablet every day by oral route. 07/28 completed pt states he never started this med Not Available Not Available Not Available Emgality Pen 120 mg/mL subcutane ous pen injector INJECT 1 DOSE MONTHLY active Not Available Not Available No t Available Emgality 120 mg/mL subcutane ous syringe Inject 120 mL every month by subcutan eous route. active Not Available Not Available No t Available Nurte ODT 75 mg disintegr ating tablet TAKE ONE TABLET BY MOUTH AT ONSET OF MIGRAINE . MAX DOSE 1 TABLET IN 24HOURS active Not Available Not Available No t Available Vitals Date Recorded Body height Body mass index (BMI) Body weight Body temperature Heart rate Systolic blood pressure Diastolic blood pressure Provider Name and Address Organization Details Last Updated DateTime 3 180.34 cm 20.6 kg/m2 38475.6 7 g 97.4 [degF] 89 /min 130 mm[Hg] 70 mm[Hg] ARTURO Tam [place] [facility] 3 15:16:22 Date Recorded Body height Body mass index (BMI) Body weight Body temperature Heart rate Systolic blood pressure Diastolic blood pressure Provider Name and Address Organization Details Last Updated DateTime 3 180.34 cm 20.5 kg/m2 63955.0 8 g 97.2 [degF] 84 /min 100 mm[Hg] 60 mm[Hg] Dai Simon [facility] [employer] [facility] 3 16:19:11 Date Recorded Body height Body weight Body temperature Heart rate Oxygen saturation Oxygen saturation in Arterial blood by Pulse oximetry Systolic blood pressure Diastolic blood pressure Provider Name and Address Organization Details Last Updated DateTime 4 180.34 cm 92686.8 6 g 97.7 [degF] 73 /min 99 % 99 % 120 mm[Hg] 70 mm[Hg] Adrianne Lara [facility] [employer] [facility] 4 16:07:46 Date Recorded Body height Body mass index (BMI) Body weight Pain severity - 0-10 verbal numeric rating [Score] - Reported Provider Name and Address Organization Details Last Updated DateTime 08/20/2023 180.34 cm 19.9 kg/m2 34866.71 g 5 Radha Rincon [facility] [employer] [facility] 08/20/2023 14:02:50 Date Recorded Body height Body mass index (BMI) Body weight Body temperature Heart rate Respiratory rate Oxygen saturation Oxygen saturation in Arterial blood by Pulse oximetry Systolic blood pressure Diastolic blood pressure Provider Name and Address Organization Details Last Updated DateTime 4 180.34 cm 20.5 kg/m2 94771.0 8 g 98.4 [degF] 68 /min 16 /min 98 % 98 % 108 mm[Hg] 60 mm[Hg] Scooby Murphy [facility] [employer] [facility] 4 14:56:19 Social History Question Answer Notes LastModified by Organizat ion Details LastModified Time Tobacco Smoking Status Never Smoker Not Available [employer] 08/08/2022 01:47:56 Do You Have An Advance Directive? No MIGRATION.[id number] Information not available 08/08/2022 What Is Your Level Of Alcohol Consumption? Moderate 1/month [email or web address] Information not available 07/28/2023 What Is Your Level Of Caffeine Consumption? None MIGRATION.58074 85541 Information not available 08/08/2022 In The 14 Days Before Symptom Onset, Have You Had Close Contact With A Laboratory-confi rmed COVID-19 While That Case Was Ill? No MIGRATION.67554 42852 Information not available 08/08/2022 In The 14 Days Before Symptom Onset, Have You Had Close Contact With A Person Who Is Under Investigation For COVID-19 While That Person Was Ill? No MIGRATION.72454 31512 Information not available 08/08/2022 What Type Of Diet Are You Following? REGULAR MIGRATION.24749 22163 Information not available 08/08/2022 Which Illicit Or Recreational Drugs Have You Used? Marijuana Information not available 03/31/2023 What Is The Highest Grade Or Level Of School You Have Completed Or The Highest Degree You Have Received? 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 No MIGRATION.54783 37326 Information not available 08/08/2022 What Is The Fluoride Status Of Your Home? Unknown MIGRATION.55068 05973 Information not available 08/08/2022 Do You Use Insect Repellent Routinely? No MIGRATION.21468 04999 Information not available 08/08/2022 [facility] MIGRATION.83463 63835 Information not available 08/08/2022 Do You Have A Medical Power Of Teacher Hearing Impaired? No MIGRATION.79137 19594 Information not available 08/08/2022 What Was The Date Of Your Most Recent Tobacco Screening? 07/28/2023 [email or web address] Information not available 07/28/2023 Do You Have Any Pets? Yes MIGRATION.18712 88312 Information not available 08/08/2022 What Is Your Relationship Status? MIGRATION.20773 28996 Information not available 08/08/2022 Do You Have Smoke And Carbon Monoxide Detectors In Your Home? Yes MIGRATION.44841 86325 Information not available 08/08/2022 Are You Passively Exposed To Smoke? No MIGRATION.06475 48435 Information not available 08/08/2022 Are There Any Smokers In Your House? No MIGRATION.94228 60699 Information not available 08/08/2022 Do You Feel Stressed (tense, Restless, Nervous, Or Anxious, Or Unable To Sleep At Night)? [id number] MIGRATION.10254 52821 Information not available 08/08/2022 Do You Use Any Illicit Or Recreational Drugs? Yes Information not available 03/31/2023 Do You Use Sunscreen Routinely? Yes Uses During Summer Time MIGRATION.20509 76902 Information not available 08/08/2022 Has Tobacco Cessation Counseling Been Provided? No N/a Information not available 03/31/2023 Have You Recently Traveled Abroad? No MIGRATION.22537 95061 Information not available 08/08/2022 Do You Have Any Dietary Restrictions? No MIGRATION.54908 01996 Information not available 08/08/2022 Do You Or Have You Ever Used Any Other Forms Of Tobacco Or Nicotine? No MIGRATION.28162 78335 Information not available 08/08/2022 Sex: Male Functional Status Question Answer Note LastModified by Organizat ion Details LastModified Time What is your exercise level? Moderate [id number] Information not available 08/08/2022 Mental Status None recorded. Family History Relationship Description Onset Age of this Age Resolved Age Notes LastModified by Organization Details LastModified Time Paternal Aunt Family history of malignant neoplasm [id number] Not available 08/08/2022 01:48:15 Maternal Grandfather Family history of malignant neoplasm MIGRATION.[id number] Not available 08/08/2022 01:48:15 Medical History Condition Response HEADACHES/MIGRAINES Y Immunizations Vaccine Type Date Status Note Provider Nam e and Address Organization Details Recorded Time COVID-19, mRNA, LNP-S, PF, 100 mcg/0.5mL dose or 50 mcg/0.25mL dose 05/17/2021 completed Not Available [facility] 3 05:14:28 COVID-19, mRNA, LNP-S, PF, 10 mcg/0.2 mL dose, oleg-sucrose 09/21/2020 completed Not Available [facility] 023 05:14:28 COVID-19, mRNA, LNP-S, PF, 10 mcg/0.2 mL dose, oleg-sucrose 08/24/2020 completed Not Available [facility] 023 05:14:28 Tdap 03/31/2023 completed Greta Ambrosio MD [address], [place] [address], [place], [address], [place] [facility] 03/31/2023 18:25:37 Past Encounters Encounter ID Performer Location Encounter Start Date Encounter Closed Date Diagnosis/Indication Diagnosis SNOMED-CT Code Diagnosis ICD10 Code Diagnosis Note [id number] [facility] [place] [address] [place] [address] [place] [address] 06/27/2022 00:00:00 07/14/2022 22:32:38 [id number] [facility] [place] [address] [place] [address] [place] [address] 07/25/2022 00:00:00 07/27/2022 21:34:33 [id number] Semaj Caal MD [facility] [place] [address] [place] [address] [place] [address] 12/03/2022 11:46:09 12/03/2022 12:55:15 Abdominal pain 24670225 R10.9 Screening for cardiovascular system disease 831754847 Z13.6 [id number] Semaj Caal MD [facility] Internal [facility] [place] [address] [place] [address] [place] [address] 02/04/2023 15:10:51 02/04/2023 15:52:20 Abdominal pain 19164946 R10.9 [id number] Greta miller MD [facility] [place] [address] [place] [address] [place] [address] 03/31/2023 15:48:54 03/31/2023 16:47:28 Screening - NAD 408139086 Z13.9 Get yearly flu shot, declined 03/31/2023 UTD on Tdap if not done 03/31/2023 Can do COVID 19 vaccine and its boosters RTC in 6 months, do labs, ER if worse, he verbalized his understand ing of the above Long-term drug therapy 357023431 Z79.899 Get labs Migraine 36281929 G43.[address] Mariscal Vitamin D deficiency 347 53910 E55.9 Serum erbeca min B12 below reference range 144134772 R79.89 Splenomegaly 51316224 R1 6.[address] Flores, as Dr Princess hou is booked out for 4 months Administra tion of diphtheria, pertussis, and tetanus vaccine 583769483 Z23 [id number] Greta miller MD [facility] [place] [address] [facility] [place] [address] 07/28/2023 15:52:44 07/28/2023 17:04:43 Screening - NAD 367592553 Z13.9 Get yearly flu shot, declined 03/31/2023 UTD on Tdap if not done 03/31/2023 Can do COVID 19 vaccine and its boosters RTC in 6 months, do labs, ER if worse, he verbalized his understand ing of the above Migraine 34103466 G43.90 [address] [facility] [address] Mariscal Vitamin D deficiency 347 87859 E55.9 Serum rebeca min B12 below reference range 340931187 R79.89 On B12Get labs Splenomegaly 31621133 R1 6.[address] Flores, as Dr Princess hou is booked out for [address] Flores 05/28/2023 Hyperlipidemia 75957031 E78.5 On cestor 40mg dailyGet labs Pain of le ft hip joint 4267561348 08647 M25.552 Get xrayMay need PTER if worse, advised that this could be overuse bursitis, and he should give his hips rest by not running so much, he has decided to ignore this advise, states that he will continue to run and infact wants to increase his distance, explained to go to the ER if his symptoms worsen, he verbalized his understand ing of the above Cobalamin deficiency 190 925391 E53.8 Rib pain 369428224 R07.8 1 Today 07/28/2023 he states that he does run 50 miles a week and he has noted some L rib area discomfort , he states that this is at its worse 1-2 and is not present today, he has declines any xray or CT chest for now, states that he will just monitor thisAdvise d to notify if any symptoms worsen, ER if worse [id number] Bobby Fowler MD [facility] Ortho Chris [place] [address] [place] [address] 08/20/2023 13:48:23 08/20/2023 14:33:12 Pain of left hip joint 3154821224 88696 M25.541 [id number] Greta miller MD [facility] Internal [facility] [address] [facility] [place] [address] 02/16/2024 14:44:31 02/16/2024 15:27:09 Screening - NAD 643516043 Z13.9 Get yearly flu shot, declined 03/31/2023 UTD on Tdap if not done 03/31/2023 Can do COVID 19 vaccine and its boosters RTC in 6 months, do labs, ER if worse, he verbalized his understand ing of the above Migraine 78066650 G43.90 [address] Mariscal Vitamin D deficiency 347 74924 E55.9 Serum rebeca min B12 below reference range 541776327 R79.89 On B12Get labs Splenomegaly 62821893 R1 6.[address] Flores, as Dr Sánchez apt is booked out for [address] Flores 05/28/2023 , 11/27/2023 Hyperlipidemia 40269189 E78.5 Not taking crestor 40mg dailyGet labs Pain of le ft hip joint 0315453879 78613 M25.552 Get xrayMay need PTER if worse, advised that this could be overuse bursitis, and he should give his hips rest by not running so much, he has decided to ignore this advise, states that he will continue to run and infact wants to increase his distance, explained to go to the ER if his symptoms worsen, he verbalized his understand ing of the above Xray 08/05/2023 : ArthritisS tates that the pain is resolved, he did do the PT, no more PT Health Concerns Section Related Observation LastModified by Organization Detai ls LastModified Time None Recorded Concern Status LastModified by Organization Details LastModified Time None Recorded Advance Directives Directive N: Payers Encounter Date Sequence Insurance Name Policy Number Policy Matias Covered Member ID Matias Member ID Guarantor Name 02/04/2023 1 [employer] [id number] Ramy D McClenagan [id number] Ramy McClenagan 03/31/2023 1 [employer] [id number] Ramy D McClenagan [id number] Ramy McClenagan 07/28/2023 1 [place] [id number] Ramy D McClenagan [id number] Ramy McClenagan 08/20/2023 1 [place] [id number] Ramy D McClenagan [id number] 06 Ramy McClenagan 02/16/2024 1 [place] [id number] Ramy D McClenagan [id number] 06 Ramy McClenagan Notes Date Note Type Note Provider Name and Address Organization Details Recorded Time 02/04/2023 text/html abdominal discomfort about 80% better to 85% better with the Pepcid no other GI can Semaj Caal MD [address], [address], [place], [address], [employer] 02/04/2023 21:48:20 03/31/2023 text/html OV [facility] Hx:Migraine Reviewed social family and surgical history Here to discuss above, get labs Greta Ambrosio MD [address], [address], [place], [address], [employer] 03/31/2023 18:28:36 07/28/2023 text/html OV 03/31/2023:[facility] Past Hx:Migraine Reviewed social family and surgical history Here to discuss above, cecile labs OV 07/28/2023:Here for his f/u apt, he is doing well today, today c/o L hip pain, states that he usually runs 50 miles per week and has noted that his L hip is painful, no acute trauma Greta Ambrosio MD [address], [address], [place], [address], [facility] [employer] [facility] 07/28/2023 18:34:51 02/16/2024 text/html OV 03/31/2023:[facility] to [facility] Past Hx:Migraine Reviewed social family and surgical history Here to discuss above, get labs OV 07/28/2023:Here for his f/u apt, he is doing well today, today c/o L hip pain, states that he usually runs 50 miles per week and has noted that his L hip is painful, no acute trauma OV 02/16/2024: Here for his routine apt, he is doing very well, he did do the labs Greta Ambrosio MD [address], [address], [place], [address], [facility] [employer] [facility] 02/16/2024 15:32:12
[2024-08-31 11:36] LABS: Folic Acid 9.1 ng/mL (2.76->20)
== END 2024-08-31 09:45 | disposition home or self-care (01) ==
LOC: ANHLAB 09:47
PROVIDERS: PCP Internal Medicine; Visit Provider Internal Medicine Hematology & Oncology
DX: E53.8 Deficiency of other specified B group vitamins (principal)
CPT/HCPCS: 36415; 80048; 82607; 82746; 85025